=== PATIENT | female | born 1960 | race Caucasian/White ===

== ENCOUNTER → 2024-08-04 13:43 | Outpatient (REF) | payer OTHER, SELFPAY | LOC: HWRCS 13:43 | PROVIDERS: ATTENDING PHYSICIAN Nuclear Medicine Nuclear Cardiology; FAMILY PHYSICIAN Family Medicine | DX: E78.2 Mixed hyperlipidemia (principal); R00.2 Palpitations; R55 Syncope and collapse | CPT/HCPCS: 93306 ==

== ENCOUNTER → 2024-11-26 09:32 | Outpatient (REF) | payer OTHER, SELFPAY | LOC: RCS 09:32 | PROVIDERS: ATTENDING PHYSICIAN Physician Assistant Medical; FAMILY PHYSICIAN Family Medicine | DX: R07.9 Chest pain, unspecified (principal) | CPT/HCPCS: 93017; 93350 ==